=== PATIENT | female | born 1970 | race Two or more races ===

== ENCOUNTER 2017-08-16 11:14 | Inpatient (IN) | payer BC ==
[~2017-08-16] VITALS: Ht 162.6 cm; Wt 71.4 kg
[2017-08-16] MEDS ORDERED: SODIUM CHLORIDE 0.9% 1,000 ML IV ONE (11:52)
[2017-08-16] MEDS ORDERED: SODIUM CHLORIDE FLUSH 10ML SYR IVF ONE (12:00)
[2017-08-16] MEDS ORDERED: SODIUM CHLORIDE 0.9% 1,000ML IVBOLUS ONE (12:00)
[2017-08-16] MEDS ORDERED: ONDANSETRON 2MG/ML, 2ML ONE (12:18)
[2017-08-16 12:20] LABS: HEMATOCRIT 45.6 % (34.6-47.8); HEMOGLOBIN 15.6 g/dL (11.7-16.4); WHITE BLOOD COUNT 13.4 x10^3/uL (3.4-10)
[2017-08-16] MEDS ORDERED: ONDANSETRON 2MG/ML, 2ML IVPush ONE (12:30)
[2017-08-16 12:32] LABS: ASPARTATE AMINO TRANSFERASE 25 U/L (15-37); BLOOD UREA NITROGEN 15 mg/dL (7-18)
[2017-08-16 12:37] LABS: IS PT STATUS REG ER OR PRE ER? YES
[2017-08-16] MEDS ORDERED: ASPIRIN 81 MG TABLET CHEW PO ONE (13:00)
[2017-08-16] MEDS ORDERED: ASPIRIN 81 MG TABLET CHEW ONE (13:07)
[2017-08-16] MEDS ORDERED: OMNIPAQUE 350 MG/ML, 100ML BOTTLE ONE (13:47)
[2017-08-16] MEDS ORDERED: ENOXAPARIN 80 MG/0.8 ML ONE (14:24)
[2017-08-16] MEDS ORDERED: ENOXAPARIN 80 MG/0.8 ML SQ ONE (15:00)
[2017-08-16] MEDS ORDERED: SODIUM CHLORIDE FLUSH 10ML SYR IVF PRN (15:00)
[2017-08-16 16:11] VITALS: BP 130/82
[2017-08-16] MEDS ORDERED: CAPTOPRIL 25 MG TABLET PO PRN (16:30)
[2017-08-16] MEDS ORDERED: ONDANSETRON ODT 4 MG PO PRN (16:30)
[2017-08-16] MEDS ORDERED: NITROGLYCERIN 0.4 MG BOTTLE (25 TABS) SL PRN (16:30)
[2017-08-16] MEDS ORDERED: BISACODYL 10 MG SUPP PR PRN (16:30)
[2017-08-16] MEDS ORDERED: LABETALOL 5MG/ML, 20ML IVPush PRN (16:30)
[2017-08-16] MEDS ORDERED: ONDANSETRON 2MG/ML, 2ML IVPush PRN (16:30)
[2017-08-16] MEDS ORDERED: HYDROcodone/APAP 5/325 TABLET PO PRN (16:30)
[2017-08-16] MEDS ORDERED: ZOLPIDEM 5MG TABLET PO PRN (16:30)
[2017-08-16] MEDS ORDERED: MORPHINE SULFATE 4 MG/ML, 1ML IVPush PRN (16:30)
[2017-08-16] MEDS ORDERED: POLYETHYLENE GLYCOL 17 GM PACKET PO PRN (16:30)
[2017-08-16 17:38] LABS: IS PT STATUS REG ER OR PRE ER? NO
[2017-08-16 19:17] VITALS: BP 117/78
[2017-08-16] MEDS: ATORVASTATIN 20 MG TABLET PO SCH (20:02)
[2017-08-16] MEDS: FAMOTIDINE 20 MG TABLET PO SCH (20:02)
[2017-08-16] MEDS: ENOXAPARIN 80 MG/0.8 ML SQ SCH (20:02)
[2017-08-16] MEDS ORDERED: TRAZODONE 50MG TABLET PO PRN (21:30)
[2017-08-16 22:47] LABS: IS PT STATUS REG ER OR PRE ER? NO
[2017-08-17 01:41] VITALS: BP 119/78
[2017-08-17] MEDS: ASPIRIN 325 MG TABLET EC PO SCH (04:59)
[2017-08-17 05:28] LABS: HEMATOCRIT 42.2 % (34.6-47.8); HEMOGLOBIN 14.4 g/dL (11.7-16.4); WHITE BLOOD COUNT 7.3 x10^3/uL (3.4-10)
[2017-08-17 05:36] LABS: BLOOD UREA NITROGEN 12 mg/dL (7-18)
[2017-08-17 05:45] LABS: IS PT STATUS REG ER OR PRE ER? NO
[2017-08-17] MEDS ORDERED: ADENOSINE 6 MG/2 ML ONE (07:10)
[2017-08-17] MEDS ORDERED: ADENOSINE 6 MG/2 ML IVPush ONE (07:30)
[2017-08-17] MEDS: ENOXAPARIN 80 MG/0.8 ML SQ SCH (08:00)
[2017-08-17 08:29] VITALS: BP 131/89
[2017-08-17] MEDS ORDERED: HEPARIN 25,000 UNITS/500ML PMX 500 ML IV PRN ×2 (11:00)
[2017-08-17] MEDS ORDERED: SODIUM CHLORIDE 0.9% 1,000 ML IV ONE (11:00)
[2017-08-17] MEDS ORDERED: HEPARIN 5,000 UNITS/ML, 1ML IV ONE (11:00)
[2017-08-17] MEDS: FAMOTIDINE 20 MG TABLET PO SCH ×2 (11:37→20:26)
[2017-08-17] MEDS: HEPARIN 25,000 UNITS/500ML PMX 500 ML IV PRN (11:42)
[2017-08-17] MEDS: SODIUM BICARBONATE 8.4% 50 MEQ in DEXTROSE 5% 1,000 ML IV SCH (13:29)
[2017-08-17 15:35] VITALS: BP 118/78
[2017-08-17] MEDS ORDERED: SODIUM BICARBONATE 8.4% 50 MEQ in DEXTROSE 5% 1,000 ML IV SCH (17:30)
[2017-08-17] MEDS: HEPARIN 5,000 UNITS/ML, 1ML IV PRN (18:51)
[2017-08-17 20:21] VITALS: BP 123/78
[2017-08-17] MEDS: ATORVASTATIN 20 MG TABLET PO SCH (20:26)
[2017-08-18 00:51] VITALS: BP 122/81
[2017-08-18] MEDS: HEPARIN 5,000 UNITS/ML, 1ML IV PRN (01:51)
[2017-08-18] MEDS: ASPIRIN 325 MG TABLET EC PO SCH (05:02)
[2017-08-18 07:33] VITALS: BP 115/72
[2017-08-18 07:45] LABS: HEMATOCRIT 42.2 % (34.6-47.8); HEMOGLOBIN 14.3 g/dL (11.7-16.4); WHITE BLOOD COUNT 5.6 x10^3/uL (3.4-10)
[2017-08-18] MEDS: FAMOTIDINE 20 MG TABLET PO SCH ×2 (07:46→19:34)
[2017-08-18 07:50] LABS: BLOOD UREA NITROGEN 9 mg/dL (7-18)
[2017-08-18] MEDS: SODIUM BICARBONATE 8.4% 50 MEQ in DEXTROSE 5% 1,000 ML IV SCH (08:04)
[2017-08-18] MEDS ORDERED: MIDAZOLAM 1 MG/ML, 5ML ONE ×2 (08:36→10:22)
[2017-08-18] MEDS ORDERED: FENTANYL PF 100 MCG/2ML ONE ×2 (08:36→10:23)
[2017-08-18] MEDS ORDERED: VERAPAMIL 2.5 MG/ML, 2ML ONE (08:36)
[2017-08-18] MEDS ORDERED: TICAGRELOR 90 MG TABLET ONE (08:36)
[2017-08-18] MEDS ORDERED: HEPARIN 1,000 UNITS/ML, 10ML ONE ×2 (08:37→10:23)
[2017-08-18] MEDS ORDERED: BIVALIRUDIN 250 MG ONE (08:37)
[2017-08-18] MEDS ORDERED: LIDOCAINE 2%, 20ML ONE ×2 (08:37→10:23)
[2017-08-18] MEDS ORDERED: NITROGLYCERIN 5 MG/ML, 10ML ONE (08:37)
[2017-08-18] MEDS ORDERED: ISOPROTERENOL 0.2MG/ML, 5ML ONE (10:23)
[2017-08-18] MEDS ORDERED: PROTAMINE SULFATE 10 MG/ML, 5ML ONE (10:23)
[2017-08-18] MEDS: ACETAMINOPHEN 325 MG TABLET PO PRN (14:16)
[2017-08-18 15:01] VITALS: BP 134/84
[2017-08-18] MEDS: HEPARIN 25,000 UNITS/500ML PMX 500 ML IV PRN (18:16)
[2017-08-18 19:28] VITALS: BP 120/79
[2017-08-18] MEDS: ATORVASTATIN 20 MG TABLET PO SCH (19:34)
[2017-08-19 02:10] VITALS: BP 118/77
[2017-08-19] MEDS: HEPARIN 5,000 UNITS/ML, 1ML IV PRN ×2 (02:13→09:26)
[2017-08-19] MEDS: ASPIRIN 325 MG TABLET EC PO SCH (05:09)
[2017-08-19 05:25] LABS: HEMATOCRIT 44.6 % (34.6-47.8); WHITE BLOOD COUNT 7.4 x10^3/uL (3.4-10)
[2017-08-19 05:41] LABS: BLOOD UREA NITROGEN 8 mg/dL (7-18)
[2017-08-19 09:15] VITALS: BP 145/91
[2017-08-19] MEDS: FAMOTIDINE 20 MG TABLET PO SCH ×2 (09:25→20:21)
[2017-08-19] MEDS: ACETAMINOPHEN 325 MG TABLET PO PRN (09:34)
[2017-08-19 13:00] VITALS: BP 109/69
[2017-08-19 20:04] VITALS: BP 120/81
[2017-08-19] MEDS: ATORVASTATIN 20 MG TABLET PO SCH (20:22)
[2017-08-20 01:42] VITALS: BP 111/73
[2017-08-20 04:54] LABS: HEMATOCRIT 43.1 % (34.6-47.8); WHITE BLOOD COUNT 5.7 x10^3/uL (3.4-10)
[2017-08-20 05:06] LABS: BLOOD UREA NITROGEN 8 mg/dL (7-18)
[2017-08-20] MEDS: ASPIRIN 325 MG TABLET EC PO SCH (05:34)
[2017-08-20] MEDS ORDERED: LISI-170 PO (08:50)
[2017-08-20] MEDS ORDERED: ASPI-650 PO (08:50)
[2017-08-20] MEDS ORDERED: LISINOPRIL 20 MG TABLET PO SCH (09:00)
[2017-08-20 09:06] VITALS: BP 178/71
[2017-08-20] MEDS: FAMOTIDINE 20 MG TABLET PO SCH (09:24)
[2017-08-20 09:34] VITALS: BP 125/80
[2017-08-21 13:07] LABS: FACTOR II DNA ANALYSIS Negative (.)
[2017-08-22 23:06] LABS: APTT 32.6 sec (.); PROTHROMBIN TIME 11.7 sec (.)
== END 2017-08-20 16:39 | disposition home or self-care (01) | DRG 273 ==
LOC: ED 14:27 → EDIP 14:32 → 5SO 16:04 → DCLOUNGE 08-20 10:45
PROVIDERS: ADMIT Hospitalist; ATTEND Hospitalist
PROC: 4A023N7 Measurement of Cardiac Sampling and Pressure, Left Heart, Percutaneous Approach (ICD-10-PCS; principal; 2017-08-18)
PROC: 02583ZZ Destruction of Conduction Mechanism, Percutaneous Approach (ICD-10-PCS; 2017-08-18)
PROC: B2111ZZ Fluoroscopy of Multiple Coronary Arteries using Low Osmolar Contrast (ICD-10-PCS; 2017-08-18)
PROC: B2151ZZ Fluoroscopy of Left Heart using Low Osmolar Contrast (ICD-10-PCS; 2017-08-18)
PROC: 02K83ZZ Map Conduction Mechanism, Percutaneous Approach (ICD-10-PCS; 2017-08-18)
PROC: 4A0234Z Measurement of Cardiac Electrical Activity, Percutaneous Approach (ICD-10-PCS; 2017-08-18)
DX: I21.4 Non-ST elevation (NSTEMI) myocardial infarction (principal); I26.09 Other pulmonary embolism with acute cor pulmonale; D72.829 Elevated white blood cell count, unspecified; R00.1 Bradycardia, unspecified; R91.1 Solitary pulmonary nodule; R91.8 Other nonspecific abnormal finding of lung field; Z82.49 Family history of ischemic heart disease and other diseases of the circulatory system; Z79.82 Long term (current) use of aspirin
CPT/HCPCS: 36415; 71010; 71275; 78582; 80048; 80053; 80061; 81003; 81240; 81241; 83036; 83690; 84439; 84443; 84484; 85025; 85300; 85301; 85303; 85306; 85379; 85520; 85598; 85610; 85613; 85670; 85730; 85732; 86146; 86147; 93005; 93306; 93454; 93613; 93621; 93623; 93653; 93970; 96361; 96372; 96374; 99156; 99157; C1769; C1894; J0153; J0583; J1644; J1650; J2250; J2405; J2720; J3010; J3490; J7070; Q9967; A9540; A9558; C1730; C2630; C9898; J7030